=== PATIENT | male | born 1970 | race Caucasian/White ===

== ENCOUNTER 2016-11-03 17:01 | Emergency (ER) | payer OTHER ==
[2016-11-03 19:44] VITALS: BP 125/75
[2016-11-03] MEDS ORDERED: Cyclobenzaprine TAB* 10 MG PO ONE (20:08)
[2016-11-03] MEDS ORDERED: Ketorolac INJ* 60 MG/2 ML VIAL IM ONE (20:08)
--- NOTE | 2016-11-03 20:10 | UC ---
Back Pain HPI - HPI Summary HPI Summary: pt c/o low back pain, stiffness and decrease ROM. Pt reports putting on pagraces last night and states that he turned and heard and a pop with onset of low back painpt. Pt tried to do normal physical activities to day but sudden onset of low back pain proevented him from completing many physical tasks. Deneis injury, numbness, loss of bladder or bowel control - History of Current Complaint Chief Complaint: UCBackPain Stated Complaint: LOW BACK PAIN Time Seen by Provider: 11/03/16 19:51 Hx Obtained From: Patient Onset/Duration: Sudden Onset, Lasting Hours Timing: Constant Severity Initially: Mild Severity Currently: Moderate Character: Dull, Aching, Spasmodic, Stiffness Aggravating: Movement, Lifting, Bending, Walking Alleviating: Rest, Position - Risk Factors AAA Risk Factors: Negative TAD Risk Factors: Negative Cauda Equina Risk Factors: Negative Epidural Abscess Risk Factors: Negative - Allergies/Home Medications Allergies/Adverse Reactions: Allergies Allergy/AdvReac Type Severity Reaction Status Date / Time Penicillins Allergy Unknown Unknown Verified 11/03/16 19:44 Reaction Details Home Medications: Home Medications Acetaminophen [Extra Strength Acetaminop] 1,000 mg PO ONCE PRN 11/03/16 [ History Confirmed 11/03/16] Pioglitazone HCl [Actos] 15 mg PO ONCE 11/03/16 [History Confirmed 11/03/16] PMH/Surg Hx/FS Hx/Imm Hx Previously Healthy: No - see PMH Endocrine History Of: Reports: Diabetes - Type II - Surgical History Surgical History: Yes Surgery Procedure, Year, and Place: R elbow repair fx - Family History Known Family History: Positive: Cardiac Disease - Social History Lives: With Family Alcohol Use: Weekly Substance Use Type: None Smoking Status (MU): Current Every Day Smoker Type: Cigarettes Amount Used/How Often: 1/2 ppd Length of Time of Smoking/Using Tobacco: 20 yrs Have You Smoked in the Last Year: Yes Review of Systems Constitutional: Negative Skin: Negative Eyes: Negative ENT: Negative Respiratory: Negative Cardiovascular: Negative Gastrointestinal: Negative Genitourinary: Negative Motor: Decreased ROM - low back Neurovascular: Negative Musculoskeletal: Decreased ROM - lower back, Myalgia Neurological: Negative Psychological: Negative All Other Systems Reviewed And Are Negative: Yes Physical Exam Triage Information Reviewed: Yes Appearance: Pain Distress Vital Signs: Initial Vital Signs Temp 97.8 F 11/03/16 19:39 Pulse 95 11/03/16 19:39 Resp 16 11/03/16 19:39 BP 125/75 11/03/16 19:39 Pulse Ox 98 11/03/16 19:39 Vital Signs Reviewed: Yes Neck exam: Normal Respiratory Exam: Normal Cardiovascular Exam: Normal Musculoskeletal Exam: Other Musculoskeletal: Positive: ROM Limited @ - low back, Other: - low back without lordotic curve Neurological Exam: Normal Psychological Exam: Normal Skin Exam: Normal Back Pain Course/Dx - Differential Dx/Diagnosis Differential Diagnosis/HQI/PQRI: Herniated Disc, Strain, Sprain Provider Diagnoses: low back strain Discharge - Discharge Plan Condition: Stable Disposition: HOME Prescriptions: Cyclobenzaprine TAB* [Flexeril TAB*] 10 mg PO TID PRN #21 tab PRN Reason: Pain Patient Education Materials: Low Back Strain (ED) Referrals: Seun Noel DO [Primary Care Provider] -
== END 2016-11-03 21:00 | disposition home or self-care (01) ==
LOC: UCCORT 17:01
DX: S39.012A Strain of muscle, fascia and tendon of lower back, initial encounter (principal); E11.9 Type 2 diabetes mellitus without complications; F17.210 Nicotine dependence, cigarettes, uncomplicated; X58.XXXA Exposure to other specified factors, initial encounter; Y92.9 Unspecified place or not applicable; Z88.0 Allergy status to penicillin
CPT/HCPCS: 96372; 99212; A9270-GY; G0463; J1885